=== PATIENT | male | born 1980 | race Caucasian/White ===

== ENCOUNTER 2016-06-21 00:04 | Emergency (ER) | payer BC ==
[~2016-06-21] VITALS: Ht 182.9 cm; Wt 92.2 kg
[~2016-06-21 00:04] MED LIST: GABA100C4 PO; POLY10O RIGHT EYE; WELL150T OR
[2016-06-21 00:12] VITALS: BP 138/77; PULSE 96; RESP 20; TEMP 99.3; O2SAT 96
[2016-06-21] MEDS ORDERED: CYCL1TAB29 PO (00:22)
[2016-06-21] MEDS ORDERED: WELLTAB39 PO (00:22)
[2016-06-21] MEDS ORDERED: HYDR-3535 PO (00:23)
[2016-06-21 00:30] VITALS: BP 141/83; PULSE 93; RESP 18; O2SAT 95
[2016-06-21] MEDS ORDERED: methylPREDNISolone SOD SUCC 125 MG/2 ML VIAL IVP ONE (00:45)
[2016-06-21] MEDS ORDERED: SODIUM CHLORIDE 0.9% FLUSH 5 ML FLUSH IVF PRN (00:45)
--- NOTE | 2016-06-21 00:46 | PD ---
HPI Chief Complaint: Respiratory Symptoms Time Seen by Provider: 00:34 Travel History International Travel<30 days: No Contact w/Intl Traveler<30days: No Traveled to known affect area: No History of Present Illness HPI 36-year-old male presents to the emergency department by private transportation the care of his spouse for evaluation of shortness of breath cough and wheezing. Patient reports remote history of asthma. Patient states symptoms have begun within the past 3 days after being exposed to an [id number] reportedly organic bug repellent powder that he sprinkled throughout his house. Patient states that the majority of the powder was dispersed within his bedroom where there is carpeting rest the house has tile. No other family members with similar symptoms. Patient reports that when he is outside of the house and specifically outside of the bedroom his symptoms seemed to be lessened and upon return to his home or specifically his bedroom where there is carpeting his symptoms seem to worsen. Patient's had nonproductive cough. Patient has had no recent febrile illness. Patient has been using his daughter' s inhaler and albuterol nebulized solution for symptom relief. Due to worsening symptoms anaiight decided to come to the emergency room for evaluation. Patient has chronic back pain due to disc disease and states his back pain is 7/10 in intensity. Patient is prescribed Flexeril and hydrocodone on a regular basis. PFSH Past Medical History Narrative Medical Asthma depression heatstroke alcohol use tobacco use nursing notes reviewed Asthma: Yes Depression: Yes Cerebrovascular Accident: Yes ("Heat strokes") Diminished Hearing: No Respiratory: Yes (ASTHMA) Immunizations Current: Yes Influenza Vaccination: No Past Surgical History Surgical History: No Previous Surgery Social History Alcohol Use: Yes (VERY RARE) Tobacco Use: Yes (QUIT 2012) Substance Use: No Allergies-Medications (Allergen,Severity, Reaction): Coded Allergies: *MDRO Multi-Drug Resistant Organism (Unverified Allergy, Unknown, 06/21/16) MRSA 2013 Iodine (Verified Allergy, Unknown, 06/21/16) HE WAS TOLD A CHILD THAT HE WAS ALLERGIC TO IODINE Reported Meds & Prescriptions Reported Meds & Active Scripts Active Nebulizer/Adult Mask (N/A) 1 Kit Kit 1 Kit .ROUTE DIRECTED Albuterol Neb (Albuterol Sulfate) 2.5 Mg/3 Ml Neb 2.5 Mg NEB Q4HR NEB While awake Prednisone 50 Mg Tab 50 Mg PO DAILY 4 Days Proventil Hfa 6.7 GM Inh (Albuterol Sulfate) 90 Mcg/Act Aer 2 Puff INH Q4-6H PRN Reported Lortab (Hydrocodone-Acetaminophen) 10-325 Mg Tab 2 Tab PO BID PRN Flexeril (Cyclobenzaprine HCl) 10 Mg Tab 10 Mg PO TID Wellbutrin Xl 24 HR (Bupropion HCl) 300 Mg Tab 300 Mg PO DAILY Review of Systems Except as stated in HPI: all other systems reviewed are Neg General / Constitutional: No: Fever, Chills Eyes: No: Visual changes HENT: No: Headaches, Vertigo, Congestion Cardiovascular: No: Chest Pain or Discomfort Respiratory: Positive: Cough, Shortness of Breath, Wheezing Gastrointestinal: No: Nausea, Vomiting, Abdominal Pain Genitourinary: No: Flank Pain Musculoskeletal: No: Myalgias, Arthralgias Skin: No Rash Neurologic: No: Weakness Psychiatric: No: Anxiety Hematologic/Lymphatic: No: Lymph Node Enlargement Physical Exam Narrative GENERAL: Well-developed well-nourished male in no acute distress mild respiratory distress SKIN: Warm and dry. HEAD: Normocephalic. EYES: No scleral icterus. No injection or drainage. NECK: Supple, trachea midline. No JVD or lymphadenopathy. CARDIOVASCULAR: Regular rate and rhythm without murmurs, gallops, or rubs. RESPIRATORY: Breath sounds equal bilaterally diminished to auscultation bilaterally with few wheezes. No accessory muscle use. GASTROINTESTINAL: Abdomen soft, non-tender, nondistended. MUSCULOSKELETAL: No cyanosis, or edema. BACK: Nontender without obvious deformity. No CVA tenderness. Data Data Last Documented VS Orders Iv Access Insert/Monitor (06/21/16 00:34) Ecg Monitoring (06/21/16 00:34) Oximetry (06/21/16 00:34) Chest, Single Ap (06/21/16 00:34) Sodium Chloride 0.9% Flush (Ns Flush) (06/21/16 00:45) Methylprednisolone So Succ Inj (Solumedr (06/21/16 00:45) Albuterol-Ipratropium Neb (Duoneb Neb) (06/21/16 00:45) MDM Medical Decision Making Medical Screen Exam Complete: Yes Emergency Medical Condition: Yes Medical Record Reviewed: Yes Interpretation(s) CXR: FINDINGS: A single view of the chest demonstrates the lungs to be symmetrically aerated without evidence of mass, infiltrate or effusion. The cardiomediastinal contours are unremarkable. Osseous structures are intact. CONCLUSION: No acute disease. Kota Hastings MD on June 21, 2016 at 0:56 Board Certified Radiologist. This report was verified electronically. Differential Diagnosis Dyspnea, asthma exacerbation, bronchitis, pneumonia, pneumothorax, atypical chest pain, allergic reaction Narrative Course Patient with diffuse expiratory wheezing with recent exposure to organic bug powder with symptoms worsening in the exposed environment and lessening away from the powdered environment. Patient with prior history of asthma of childhood. Patient using his own child's medication for her asthma to decrease his symptoms. Patient administered Solu-Medrol 125 mg IV along with DuoNeb updrafts 2. Chest x-ray performed which reveals no lobar infiltrate vascular congestion or pneumothorax. At 1:32 AM lung sounds are clear; patient stable for outpatient management; patient given prescriptions for albuterol inhaler and albuterol suspension with prescription for nebulizer Diagnosis Primary Impression: Dyspnea Qualified Code: R06.02 - Shortness of breath Additional Impression: Acute asthmatic bronchitis Referrals: Primary Care Physician call for appointment Patient Instructions: General Instructions Additional Instructions: Use medications as prescribed Follow-up with her primary care provider call office on Wednesday to schedule appointment Increase fluid hydration Return to the emergency department for any concerns or change in condition Take acetaminophen/Tylenol as needed for fever 100.4F or greater Med/Other Pt SpecificInfo: Prescription(s) given Scripts Nebulizer/Adult Mask 1 Kit Kit #1 KIT .ROUTE DIRECTED Ref 0 Prov:Shana White MD 06/21/16 Albuterol Neb 2.5 Mg/3 Ml Neb2.5 Mg NEB Q4HR NEB #60 NEBULE Ref 0 While awake Prov:Shana White MD 06/21/16 Prednisone 50 Mg Tab50 Mg PO DAILY 4 Days Ref 0 Prov:Shana White MD 06/21/16 Albuterol 6.7 GM Inh (Proventil Hfa 6.7 GM Inh)90 Mcg/Act Aer2 Puff INH Q4-6H PRN (SHORTNESS OF BREATH) #1 INHALER Ref 0 Prov:Shana White MD 1/29/17 Disposition: 01 DISCHARGE HOME Condition: Stable Salter,Shana H. MD Jun 21, 2016 00:46
[2016-06-21] MEDS: RESP: ALBUTEROL 2.5 MG/IPRATROPIUM 0.5 MG NEB (SCH) INH ×2 (00:57→01:15)
--- NOTE | 2016-06-21 00:58 | RADHPO ---
EXAM DATE/TIME: 06/21/2016 00:48 [facility] COMPARISON: No previous studies available for comparison. INDICATIONS : Shortness of breath. MEDICAL HISTORY : Asthma SURGICAL HISTORY : None. ENCOUNTER: Initial ACUITY: 3 days PAIN SCORE: 5/10 LOCATION: Bilateral chest FINDINGS: A single view of the chest demonstrates the lungs to be symmetrically aerated without evidence of mas s, infiltrate or effusion. The cardiomediastinal contours are unremarkable. Osseous structures are intact. CONCLUSION: No acute disease. Kota Hastings MD on June 21, 2016 at 0:56 Board Certified Radiologist. This report was verified electronically.
[2016-06-21] MEDS ORDERED: NEBULIZER/ADULT1 KIT (01:23)
[2016-06-21] MEDS ORDERED: ALBU6.7H INH (01:23)
[2016-06-21] MEDS ORDERED: ALBU0.08 NEB (01:23)
[2016-06-21] MEDS ORDERED: PRED50 PO (01:23)
[2016-06-21 01:30] VITALS: BP 132/71; PULSE 85; RESP 18; O2SAT 97
== END 2016-06-21 01:47 | disposition home or self-care (01) ==
LOC: PHED 00:04
DX: J45.909 Unspecified asthma, uncomplicated (principal); Z87.891 Personal history of nicotine dependence
CPT/HCPCS: 71010; 94640; 94664; 96374; 99284; J2930

== ENCOUNTER 2016-11-12 10:02 | Emergency (ER) | payer BC ==
[~2016-11-12] VITALS: Ht 182.9 cm; Wt 90.2 kg
[~2016-11-12 10:02] MED LIST changes: +ALBU0.08 NEB; +ALBU6.7H INH; +CYCL1TAB29 PO; -GABA100C4 PO; +HYDR-3535 PO; +NEBULIZER/ADULT1 KIT; -POLY10O RIGHT EYE; +PRED50 PO; -WELL150T OR; +WELLTAB39 PO
[2016-11-12 10:10] VITALS: BP 123/83; PULSE 81; RESP 16; TEMP 98; O2SAT 100
[2016-11-12] MEDS ORDERED: PANT40TA3 PO (10:24)
--- NOTE | 2016-11-12 11:07 | PD ---
HPI Chief Complaint: Respiratory Symptoms Time Seen by Provider: 10:55 Travel History International Travel<30 days: No Contact w/Intl Traveler<30days: No Traveled to known affect area: No History of Present Illness HPI 36yo M with PMH of asthma presents to the ED with c/o using her proair too much. States he has been coughing and feeling sob and his proair helps but he is using more than every 4 hours for the last few days. Went to PMD 2 weeks ago and was given augmentin and nasal spray which helped. Denies any fever, chest pain, n/v, abdominal pain, focal weakness or numbness. Former smoker. PFSH Past Medical History Asthma: Yes Depression: Yes Cerebrovascular Accident: Yes ("Heat strokes") Diminished Hearing: No GERD: Yes Respiratory: Yes (HS ASTHMA; USES PROAIR) Immunizations Current: Yes Influenza Vaccination: No ?: Not Social History Alcohol Use: Yes (VERY RARE) Tobacco Use: Yes (QUIT 2012) Substance Use: No Allergies-Medications (Allergen,Severity, Reaction): Coded Allergies: *MDRO Multi-Drug Resistant Organism (Unverified Allergy, Unknown, 11/12/16) MRSA 2013 Iodine (Verified Allergy, Unknown, 11/12/16) HE WAS TOLD A CHILD THAT HE WAS ALLERGIC TO IODINE Reported Meds & Prescriptions Reported Meds & Active Scripts Active Nebulizer/Adult Mask (N/A) 1 Kit Kit 1 Kit .ROUTE DIRECTED Albuterol Neb (Albuterol Sulfate) 2.5 Mg/3 Ml Neb 2.5 Mg NEB Q4HR NEB While awake Proventil Hfa 6.7 GM Inh (Albuterol Sulfate) 90 Mcg/Act Aer 2 Puff INH Q4-6H PRN Reported Pantoprazole (Pantoprazole Sodium) 40 Mg Tab 40 Mg PO DAILY Lortab (Hydrocodone-Acetaminophen) 10-325 Mg Tab 2 Tab PO BID PRN Flexeril (Cyclobenzaprine HCl) 10 Mg Tab 10 Mg PO TID Wellbutrin Xl 24 HR (Bupropion HCl) 300 Mg Tab 300 Mg PO DAILY Review of Systems Except as stated in HPI: all other systems reviewed are Neg Physical Exam Narrative GENERAL: 36yo M not in distress. SKIN: Focused skin assessment warm/dry. HEAD: Atraumatic. Normocephalic. EYES: Pupils equal and round. No scleral icterus. No injection or drainage. ENT: No nasal bleeding or discharge. Mucous membranes pink and moist. NECK: Trachea midline. No JVD. CARDIOVASCULAR: Regular rate and rhythm. No murmur appreciated. RESPIRATORY: No accessory muscle use. Clear to auscultation. Breath sounds equal bilaterally. GASTROINTESTINAL: Abdomen soft, non-tender, nondistended. MUSCULOSKELETAL: No obvious deformities. No clubbing. No cyanosis. No edema. NEUROLOGICAL: Awake and alert. No obvious cranial nerve deficits. Motor grossly within normal limits. Normal speech. PSYCHIATRIC: Appropriate mood and affect; insight and judgment normal. Data Data Last Documented VS Vital Signs Date Time Temp Pulse Resp B/P Pulse Ox O2 Delivery O2 Flow Rate FiO2 11/12/16 12:48 70 18 123/42 97 Room Air 11/12/16 10:10 98.0 Orders Chest, Pa & Lat (11/12/16 11:02) Albuterol-Ipratropium Neb (Duoneb Neb) (11/12/16 11:15) Prednisone (Deltasone) (11/12/16 11:15) [facility] [place] Medical Decision Making Medical Screen Exam Complete: Yes Emergency Medical Condition: Yes Differential Diagnosis Asthma exacerbation vs. pneumonia vs. post nasal drip Narrative Course 36yo M with history of asthma here with c/o using his proair too much. Pt states proair helps but he keeps using it. Feels like his asthma. Pt is well appearing. Speaking in complete sentences and saturating at 100% on RA. Since pt has history of asthma, will give prednisone 60mg PO and duonebs x2. Pt reevaluated at bedside and states he feels better. CXR negative. Return precautions given. Diagnosis Primary Impression: Asthma exacerbation Patient Instructions: General Instructions Departure Forms: Tests/Procedures Additional Instructions: Please follow up with your PMD in 3-7 days. Return to the ED if symptoms worsen. Med/Other Pt SpecificInfo: Prescription(s) given Scripts Albuterol 18 GM Inh (Ventolin Hfa 18 GM Inh)90 Mcg/Act Aer2 Puff INH Q4H PRN ( SHORTNESS OF BREATH) #1 INHALER Ref 0 Prov:Zoila Quintana DO 11/12/16 Prednisone (Deltasone)20 Mg Tab20 Mg PO BID 5 Days Ref 0 Prov:Zoila Quintana DO 11/12/16 Fluticasone 12 GM Inh (Flovent Hfa 12 GM Inh)110 Mcg/Act Inh2 Puff INH BID #1 INHALER Ref 0 Prov:Zoila Quintana DO 11/12/16 Zoila Quintana DO Nov 12, 2016 11:07
[2016-11-12] MEDS ORDERED: predniSONE 20 MG TAB PO ONE (11:15)
[2016-11-12] MEDS: RESP: ALBUTEROL 2.5 MG/IPRATROPIUM 0.5 MG NEB (SCH) INH (11:17)
--- NOTE | 2016-11-12 11:28 | RADRPT ---
EXAM DATE/TIME: 11/12/2016 11:11 [facility] COMPARISON: No previous studies available for comparison. INDICATIONS : Patient has been short of breath for two days. MEDICAL HISTORY : Asthma. SURGICAL HISTORY : None. ENCOUNTER: Initial ACUITY: 2 days PAIN SCORE: 0/10 LOCATION: Bilateral chest FINDINGS: PA and lateral views of the chest demonstrate the lungs to be symmetrically aerated without evidence of mass, infiltrate or effusion. The cardiomediastinal contours are unremarkable. Osseous structure s are intact. CONCLUSION: Normal examination for a patient of this age. Leland Alcantara MD on November 12, 2016 at 11:25 Board Certified Radiologist. This report was verified electronically.
[2016-11-12 12:48] VITALS: BP 123/42; PULSE 70; RESP 18; O2SAT 97
[2016-11-12] MEDS ORDERED: VENTAER INH (12:53)
[2016-11-12] MEDS ORDERED: FLUTI110I INH (12:53)
[2016-11-12] MEDS ORDERED: PRED-503 PO (12:53)
== END 2016-11-12 12:58 | disposition home or self-care (01) ==
LOC: PHED 10:02
DX: J45.901 Unspecified asthma with (acute) exacerbation (principal); K21.9 Gastro-esophageal reflux disease without esophagitis
CPT/HCPCS: 71020; 94640; 94664; 99284; J7512